=== PATIENT | male | born 1995 | race Caucasian/White ===

== ENCOUNTER 2022-01-19 10:45 | Emergency (ER) | payer MEDICAID ==
[~2022-01-19] VITALS: Ht 180.3 cm; Wt 93.6 kg
[2022-01-19] MEDS ORDERED: TETRACAINE HCL/PF 0.5% 4 ML OPHTHALMIC SOLUTION OS ONE (12:15)
[2022-01-19 14:05] VITALS: BP 131/80
[2022-01-19] MEDS ORDERED: MOXI3DRO27 OS ×2 (14:15→14:16)
== END 2022-01-19 14:28 | disposition home or self-care (01) ==
LOC: EMS 10:47
DX: H10.212 Acute toxic conjunctivitis, left eye (principal)
CPT/HCPCS: 99284; Z7502; Z7610